=== PATIENT | female | born 1940 | race Asian ===

== ENCOUNTER 2018-10-19 16:50 | Inpatient (IN) | payer MEDICARE, OTHER ==
[~2018-10-19] VITALS: Ht 149.9 cm; Wt 44.0 kg
[~2018-10-19 16:50] MED LIST: 0.9% SODIUM CHLORIDE 10 ML SYRINGE IVP SCH; AMLO-511 PO; ASPI81 PO; ATOR40TA28 PO; CALC25 PO; CHOL50004 PO; CLOP75TA3 PO; DSS100 PO; LOSA50TA64 PO; METO-558 PO; METO25 PO; PANT40TA25 PO; SITA50 PO
[2018-10-19 17:00] VITALS: BP 149/85
[2018-10-19] MEDS ORDERED: INSULIN LISPRO 100 UNITS/ML SQ PRN (19:00)
[2018-10-19] MEDS ORDERED: DEXTROSE 50%-WATER 25 GM/50 ML SYRINGE IVP PRN (19:00)
[2018-10-19 20:29] LABS: GLUCOMETER DEV NAME(LOC) 2WR.2; GLUCOSE,POINT OF CARE 99 MG/DL (70-110)
[2018-10-19] MEDS ORDERED: BISACODYL 10 MG RECTAL RECTAL SUPPOSITORY PR PRN (21:00)
[2018-10-19 21:30] VITALS: BP 154/82
[2018-10-19] MEDS: LOSARTAN POTASSIUM 25 MG TABLET PO SCH (21:32)
[2018-10-19] MEDS: ATORVASTATIN CALCIUM 40 MG TABLET PO SCH (21:32)
[2018-10-19] MEDS: DOCUSATE SODIUM 100 MG CAPSULE PO SCH (21:33)
[2018-10-19] MEDS: METOPROLOL TARTRATE 25 MG TABLET PO SCH (21:33)
[2018-10-19 22:24] LABS: GLUCOMETER DEV NAME(LOC) 2WR.1; GLUCOSE,POINT OF CARE 104 MG/DL (70-110)
[2018-10-19 23:00] VITALS: BP 151/83
[2018-10-20 06:14] LABS: GLUCOMETER DEV NAME(LOC) 2WR.1; GLUCOSE,POINT OF CARE 90 MG/DL (70-110)
[2018-10-20 06:38] LABS: BASOPHILS % (AUTO) 1.1 % (0.0-2.0); EOSINOPHILS % (AUTO) 6.1 % (1.0-6.0); HEMATOCRIT 36.2 % (36-46); HEMOGLOBIN 11.9 g/dL (12.0-16.0); LYMPHOCYTES % (AUTO) 25.5 % (22.0-44.0); MEAN CORPUSCULAR HGB CONC 32.9 G/dL (31.0-37.0); MEAN CORPUSCULAR VOLUME 91 fL (80-100); MONOCYTES # (AUTO) 0.7 K/uL (0.1-1.0); MONOCYTES % (AUTO) 8.5 % (2.0-9.0); NEUTROPHILS # (AUTO) 4.6 K/uL (1.8-7.7); NEUTROPHILS % (AUTO) 58.8 % (40.0-70.0); PLATELET COUNT (AUTO) 235 K/uL (150-450); RED BLOOD CELL COUNT(AUTO) 3.98 MIL/uL (4.00-5.20); RED CELL DISTRIBUTION WIDTH 13.3 % (11.5-14.5)
[2018-10-20 07:08] LABS: ALBUMIN 2.7 g/dL (3.4-5.0); BILIRUBIN,TOTAL 0.4 mg/dL (0.1-1.0); CALCIUM, TOTAL 9.3 mg/dL (8.8-10.5); CREATININE 2.04 mg/dL (0.60-1.30); POTASSIUM 3.9 mmol/L (3.5-5.1); TOTAL PROTEIN, SERUM 6.6 g/dL (6.4-8.2)
[2018-10-20] MEDS: DOCUSATE SODIUM 100 MG CAPSULE PO SCH (08:42)
[2018-10-20] MEDS: PANTOPRAZOLE SODIUM 40 MG DR TABLET PO SCH (08:43)
[2018-10-20] MEDS: ASPIRIN 81 MG EC TABLET PO SCH (08:43)
[2018-10-20] MEDS: LOSARTAN POTASSIUM 25 MG TABLET PO SCH ×2 (08:44→21:58)
[2018-10-20] MEDS: CLOPIDOGREL BISULFATE 75 MG TABLET PO SCH (08:44)
[2018-10-20] MEDS: METOPROLOL TARTRATE 25 MG TABLET PO SCH ×2 (08:44→21:58)
[2018-10-20 08:58] VITALS: BP 157/94
[2018-10-20 14:19] LABS: GLUCOMETER DEV NAME(LOC) 2WR.1; GLUCOSE,POINT OF CARE 100 MG/DL (70-110)
[2018-10-20 15:00] VITALS: BP 154/79
[2018-10-20] MEDS ORDERED: POLYETHYLENE GLYCOL 3350 17 GM PACKET PO PRN (15:30)
[2018-10-20 17:35] LABS: GLUCOMETER DEV NAME(LOC) 2WR.2; GLUCOSE,POINT OF CARE 109 MG/DL (70-110)
[2018-10-20 21:31] VITALS: BP 159/92
[2018-10-20 21:55] VITALS: BP 159/92
[2018-10-20] MEDS: DOCUSATE SODIUM 250 MG CAPSULE PO SCH (21:58)
[2018-10-20] MEDS: ATORVASTATIN CALCIUM 40 MG TABLET PO SCH (21:58)
[2018-10-20 23:33] VITALS: BP 154/79
[2018-10-21 06:45] LABS: GLUCOMETER DEV NAME(LOC) 2WR.2; GLUCOSE,POINT OF CARE 92 MG/DL (70-110)
[2018-10-21] MEDS: DOCUSATE SODIUM 250 MG CAPSULE PO SCH ×2 (08:03→19:46)
[2018-10-21] MEDS: LOSARTAN POTASSIUM 25 MG TABLET PO SCH ×2 (08:03→19:45)
[2018-10-21] MEDS: PANTOPRAZOLE SODIUM 40 MG DR TABLET PO SCH (08:03)
[2018-10-21] MEDS: CLOPIDOGREL BISULFATE 75 MG TABLET PO SCH (08:03)
[2018-10-21] MEDS: ASPIRIN 81 MG EC TABLET PO SCH (08:03)
[2018-10-21] MEDS: METOPROLOL TARTRATE 25 MG TABLET PO SCH ×2 (08:03→19:45)
[2018-10-21 08:53] VITALS: BP 142/79
[2018-10-21 15:34] VITALS: BP 159/84
[2018-10-21 17:39] LABS: GLUCOMETER DEV NAME(LOC) 2WR.2; GLUCOSE,POINT OF CARE 101 MG/DL (70-110)
[2018-10-21 19:43] VITALS: BP 148/74
[2018-10-21] MEDS: ATORVASTATIN CALCIUM 40 MG TABLET PO SCH (19:45)
[2018-10-22 05:06] VITALS: BP 156/79
[2018-10-22 07:24] LABS: GLUCOMETER DEV NAME(LOC) 2WR.2; GLUCOSE,POINT OF CARE 102 MG/DL (70-110)
[2018-10-22 07:27] VITALS: BP 148/79
[2018-10-22] MEDS: CLOPIDOGREL BISULFATE 75 MG TABLET PO SCH (08:49)
[2018-10-22] MEDS: METOPROLOL TARTRATE 25 MG TABLET PO SCH ×2 (08:50→19:30)
[2018-10-22] MEDS: DOCUSATE SODIUM 250 MG CAPSULE PO SCH ×2 (08:50→19:30)
[2018-10-22] MEDS: LOSARTAN POTASSIUM 25 MG TABLET PO SCH ×2 (08:50→19:30)
[2018-10-22] MEDS: PANTOPRAZOLE SODIUM 40 MG DR TABLET PO SCH (08:50)
[2018-10-22] MEDS: ASPIRIN 81 MG EC TABLET PO SCH (08:50)
[2018-10-22 09:30] VITALS: BP 136/73
[2018-10-22 16:00] VITALS: BP 152/77
[2018-10-22 18:47] LABS: GLUCOMETER DEV NAME(LOC) 2WR.2; GLUCOSE,POINT OF CARE 164 MG/DL (70-110)
[2018-10-22 19:28] VITALS: BP 136/78
[2018-10-22] MEDS: ATORVASTATIN CALCIUM 40 MG TABLET PO SCH (19:30)
[2018-10-23 02:16] VITALS: BP 145/76
[2018-10-23 06:40] LABS: GLUCOMETER DEV NAME(LOC) 2WR.1; GLUCOSE,POINT OF CARE 101 MG/DL (70-110)
[2018-10-23 07:00] VITALS: BP 158/57
[2018-10-23 08:00] VITALS: BP 164/76
[2018-10-23] MEDS: DOCUSATE SODIUM 250 MG CAPSULE PO SCH ×2 (08:39→20:02)
[2018-10-23] MEDS: PANTOPRAZOLE SODIUM 40 MG DR TABLET PO SCH (08:40)
[2018-10-23] MEDS: ASPIRIN 81 MG EC TABLET PO SCH (08:40)
[2018-10-23] MEDS: CLOPIDOGREL BISULFATE 75 MG TABLET PO SCH (08:40)
[2018-10-23] MEDS: METOPROLOL TARTRATE 25 MG TABLET PO SCH ×2 (08:40→20:01)
[2018-10-23] MEDS: LOSARTAN POTASSIUM 25 MG TABLET PO SCH (08:40)
[2018-10-23 15:51] VITALS: BP 149/78
[2018-10-23 18:09] LABS: GLUCOMETER DEV NAME(LOC) 2WR.1; GLUCOSE,POINT OF CARE 95 MG/DL (70-110)
[2018-10-23] MEDS: ATORVASTATIN CALCIUM 40 MG TABLET PO SCH (20:01)
[2018-10-24] MEDS ORDERED: AMLO-511 PO (01:34)
[2018-10-24] MEDS ORDERED: CALC25 PO (01:34)
[2018-10-24] MEDS ORDERED: SITA50 PO (01:34)
[2018-10-24 05:00] VITALS: BP 145/81
[2018-10-24 05:45] LABS: GLUCOMETER DEV NAME(LOC) 2WR.1; GLUCOSE,POINT OF CARE 92 MG/DL (70-110)
[2018-10-24 07:00] VITALS: BP 165/92
[2018-10-24] MEDS: LOSARTAN POTASSIUM 50 MG TABLET PO SCH (07:45)
[2018-10-24] MEDS: PANTOPRAZOLE SODIUM 40 MG DR TABLET PO SCH (07:45)
[2018-10-24] MEDS: METOPROLOL TARTRATE 25 MG TABLET PO SCH ×2 (07:45→20:41)
[2018-10-24] MEDS: CLOPIDOGREL BISULFATE 75 MG TABLET PO SCH (07:45)
[2018-10-24] MEDS: DOCUSATE SODIUM 250 MG CAPSULE PO SCH ×2 (07:45→20:41)
[2018-10-24] MEDS: ASPIRIN 81 MG EC TABLET PO SCH (07:45)
[2018-10-24 15:00] VITALS: BP 144/73
[2018-10-24 17:53] LABS: GLUCOMETER DEV NAME(LOC) 2WR.1; GLUCOSE,POINT OF CARE 93 MG/DL (70-110)
[2018-10-24 20:38] VITALS: BP 138/81
[2018-10-24] MEDS: ATORVASTATIN CALCIUM 40 MG TABLET PO SCH (20:41)
[2018-10-25 04:15] VITALS: BP 145/82
[2018-10-25 06:25] LABS: GLUCOMETER DEV NAME(LOC) 2WR.2; GLUCOSE,POINT OF CARE 90 MG/DL (70-110)
[2018-10-25 07:46] VITALS: BP 158/73
[2018-10-25] MEDS: ASPIRIN 81 MG EC TABLET PO SCH (08:04)
[2018-10-25] MEDS: CLOPIDOGREL BISULFATE 75 MG TABLET PO SCH (08:04)
[2018-10-25] MEDS: DOCUSATE SODIUM 250 MG CAPSULE PO SCH ×2 (08:05→20:53)
[2018-10-25] MEDS: METOPROLOL TARTRATE 25 MG TABLET PO SCH ×2 (08:05→20:53)
[2018-10-25] MEDS: LOSARTAN POTASSIUM 50 MG TABLET PO SCH (08:05)
[2018-10-25] MEDS: PANTOPRAZOLE SODIUM 40 MG DR TABLET PO SCH (08:06)
[2018-10-25 16:30] VITALS: BP 153/89
[2018-10-25 20:50] VITALS: BP 155/85
[2018-10-25] MEDS: ATORVASTATIN CALCIUM 40 MG TABLET PO SCH (20:53)
[2018-10-26 03:00] VITALS: BP 149/82
[2018-10-26 05:45] LABS: GLUCOMETER DEV NAME(LOC) 2WR.2; GLUCOSE,POINT OF CARE 97 MG/DL (70-110)
[2018-10-26 07:30] VITALS: BP 149/85
[2018-10-26] MEDS: PANTOPRAZOLE SODIUM 40 MG DR TABLET PO SCH (08:14)
[2018-10-26] MEDS: CLOPIDOGREL BISULFATE 75 MG TABLET PO SCH (08:14)
[2018-10-26] MEDS: LOSARTAN POTASSIUM 50 MG TABLET PO SCH (08:14)
[2018-10-26] MEDS: METOPROLOL TARTRATE 25 MG TABLET PO SCH ×2 (08:14→20:47)
[2018-10-26] MEDS: ASPIRIN 81 MG EC TABLET PO SCH (08:14)
[2018-10-26] MEDS: DOCUSATE SODIUM 250 MG CAPSULE PO SCH ×2 (08:15→20:47)
[2018-10-26 16:15] VITALS: BP 155/86
[2018-10-26 20:45] VITALS: BP 149/79
[2018-10-26] MEDS: ATORVASTATIN CALCIUM 40 MG TABLET PO SCH (20:47)
[2018-10-26] MEDS: MELATONIN 3 MG TABLET PO PRN (20:47)
[2018-10-27 04:00] VITALS: BP 145/74
[2018-10-27 06:24] LABS: GLUCOMETER DEV NAME(LOC) 2WR.2; GLUCOSE,POINT OF CARE 109 MG/DL (70-110)
[2018-10-27 07:47] VITALS: BP 145/59
[2018-10-27] MEDS: LOSARTAN POTASSIUM 50 MG TABLET PO SCH (08:08)
[2018-10-27] MEDS: PANTOPRAZOLE SODIUM 40 MG DR TABLET PO SCH (08:08)
[2018-10-27] MEDS: CLOPIDOGREL BISULFATE 75 MG TABLET PO SCH (08:08)
[2018-10-27] MEDS: METOPROLOL TARTRATE 25 MG TABLET PO SCH ×2 (08:09→21:00)
[2018-10-27] MEDS: ASPIRIN 81 MG EC TABLET PO SCH (08:10)
[2018-10-27] MEDS: DOCUSATE SODIUM 250 MG CAPSULE PO SCH ×2 (08:10→21:18)
[2018-10-27 15:36] VITALS: BP 153/80
[2018-10-27 20:00] VITALS: BP 149/77
[2018-10-27] MEDS: ATORVASTATIN CALCIUM 40 MG TABLET PO SCH (21:18)
[2018-10-27] MEDS: MELATONIN 3 MG TABLET PO PRN (21:19)
[2018-10-28 01:38] VITALS: BP 143/74
[2018-10-28] MEDS: ACETAMINOPHEN 325 MG TABLET PO PRN (01:38)
[2018-10-28 06:34] LABS: GLUCOMETER DEV NAME(LOC) 2WR.2; GLUCOSE,POINT OF CARE 103 MG/DL (70-110)
[2018-10-28 07:45] VITALS: BP 156/75
[2018-10-28] MEDS: PANTOPRAZOLE SODIUM 40 MG DR TABLET PO SCH (08:58)
[2018-10-28] MEDS: ASPIRIN 81 MG EC TABLET PO SCH (08:58)
[2018-10-28] MEDS: CLOPIDOGREL BISULFATE 75 MG TABLET PO SCH (08:58)
[2018-10-28] MEDS: DOCUSATE SODIUM 250 MG CAPSULE PO SCH ×2 (08:58→20:07)
[2018-10-28] MEDS: LOSARTAN POTASSIUM 50 MG TABLET PO SCH ×2 (08:59→10:58)
[2018-10-28] MEDS: METOPROLOL TARTRATE 25 MG TABLET PO SCH ×3 (08:59→20:07)
[2018-10-28 10:55] VITALS: BP 137/63
[2018-10-28 15:23] VITALS: BP 149/80
[2018-10-28] MEDS: ATORVASTATIN CALCIUM 40 MG TABLET PO SCH (20:08)
[2018-10-28] MEDS: TEMAZEPAM 7.5 MG CAPSULE PO PRN (20:08)
[2018-10-29] VITALS (7 sets, daily range): BP systolic 143–170; BP diastolic 71–85
[2018-10-29 06:19] LABS: GLUCOMETER DEV NAME(LOC) 2WR.1; GLUCOSE,POINT OF CARE 96 MG/DL (70-110)
[2018-10-29] MEDS: DOCUSATE SODIUM 250 MG CAPSULE PO SCH ×2 (08:36→19:46)
[2018-10-29] MEDS: ASPIRIN 81 MG EC TABLET PO SCH (08:37)
[2018-10-29] MEDS: CLOPIDOGREL BISULFATE 75 MG TABLET PO SCH (08:37)
[2018-10-29] MEDS: PANTOPRAZOLE SODIUM 40 MG DR TABLET PO SCH (08:37)
[2018-10-29] MEDS: METOPROLOL TARTRATE 25 MG TABLET PO SCH ×2 (08:37→19:46)
[2018-10-29] MEDS: LOSARTAN POTASSIUM 50 MG TABLET PO SCH (08:37)
[2018-10-29] MEDS: ACETAMINOPHEN 325 MG TABLET PO PRN (19:46)
[2018-10-29] MEDS: ATORVASTATIN CALCIUM 40 MG TABLET PO SCH (19:46)
[2018-10-29] MEDS: TEMAZEPAM 7.5 MG CAPSULE PO PRN (19:47)
[2018-10-30 03:45] VITALS: BP 159/71
[2018-10-30 06:00] VITALS: BP 150/75
[2018-10-30 06:10] LABS: GLUCOMETER DEV NAME(LOC) 2WR.2; GLUCOSE,POINT OF CARE 95 MG/DL (70-110)
[2018-10-30 08:00] VITALS: BP 155/89
[2018-10-30] MEDS: METOPROLOL TARTRATE 25 MG TABLET PO SCH ×2 (08:22→20:30)
[2018-10-30] MEDS: PANTOPRAZOLE SODIUM 40 MG DR TABLET PO SCH (08:22)
[2018-10-30] MEDS: LOSARTAN POTASSIUM 50 MG TABLET PO SCH (08:22)
[2018-10-30] MEDS: CLOPIDOGREL BISULFATE 75 MG TABLET PO SCH (08:22)
[2018-10-30] MEDS: DOCUSATE SODIUM 250 MG CAPSULE PO SCH ×2 (08:22→20:30)
[2018-10-30] MEDS: ASPIRIN 81 MG EC TABLET PO SCH (08:22)
[2018-10-30 11:50] VITALS: BP 151/90
[2018-10-30] MEDS: AmLODIPine BESYLATE 5 MG TABLET PO SCH (11:52)
[2018-10-30 15:57] VITALS: BP 155/79
[2018-10-30 20:28] VITALS: BP 149/73
[2018-10-30] MEDS: ATORVASTATIN CALCIUM 40 MG TABLET PO SCH (20:30)
[2018-10-30] MEDS: TEMAZEPAM 7.5 MG CAPSULE PO PRN (20:35)
[2018-10-31 03:00] VITALS: BP 150/78
[2018-10-31 05:55] LABS: GLUCOMETER DEV NAME(LOC) 2WR.2; GLUCOSE,POINT OF CARE 93 MG/DL (70-110)
[2018-10-31 07:10] LABS: BASOPHILS % (AUTO) 0.8 % (0.0-2.0); EOSINOPHILS % (AUTO) 6.3 % (1.0-6.0); HEMATOCRIT 35.2 % (36-46); HEMOGLOBIN 11.8 g/dL (12.0-16.0); LYMPHOCYTES # (AUTO) 2.6 K/uL (1.0-4.8); LYMPHOCYTES % (AUTO) 34.6 % (22.0-44.0); MEAN CORPUSCULAR HGB CONC 33.4 G/dL (31.0-37.0); MEAN CORPUSCULAR VOLUME 90 fL (80-100); MONOCYTES # (AUTO) 0.6 K/uL (0.1-1.0); NEUTROPHILS # (AUTO) 3.7 K/uL (1.8-7.7); NEUTROPHILS % (AUTO) 50.3 % (40.0-70.0); PLATELET COUNT (AUTO) 229 K/uL (150-450); RED BLOOD CELL COUNT(AUTO) 3.92 MIL/uL (4.00-5.20); RED CELL DISTRIBUTION WIDTH 13.3 % (11.5-14.5)
[2018-10-31 07:12] VITALS: BP 156/83
[2018-10-31 07:29] LABS: CREATININE 1.88 mg/dL (0.60-1.30); MAGNESIUM 2.1 mg/dL (1.80-2.40); PHOSPHORUS 3.3 mg/dL (2.5-4.9); POTASSIUM 4.2 mmol/L (3.5-5.1)
[2018-10-31] MEDS: ASPIRIN 81 MG EC TABLET PO SCH (07:51)
[2018-10-31] MEDS: DOCUSATE SODIUM 250 MG CAPSULE PO SCH ×2 (07:51→20:42)
[2018-10-31] MEDS: PANTOPRAZOLE SODIUM 40 MG DR TABLET PO SCH (07:51)
[2018-10-31] MEDS: AmLODIPine BESYLATE 5 MG TABLET PO SCH (07:51)
[2018-10-31] MEDS: CLOPIDOGREL BISULFATE 75 MG TABLET PO SCH (07:51)
[2018-10-31] MEDS: LOSARTAN POTASSIUM 50 MG TABLET PO SCH (07:51)
[2018-10-31 10:00] VITALS: BP 146/89
[2018-10-31] MEDS: METOPROLOL TARTRATE 25 MG TABLET PO SCH ×2 (10:07→20:42)
[2018-10-31 16:02] VITALS: BP 153/73
[2018-10-31 20:20] VITALS: BP 146/89
[2018-10-31] MEDS: ATORVASTATIN CALCIUM 40 MG TABLET PO SCH (20:42)
[2018-11-01 00:13] VITALS: BP 146/80
[2018-11-01 06:24] LABS: GLUCOMETER DEV NAME(LOC) 2WR.2; GLUCOSE,POINT OF CARE 114 MG/DL (70-110)
[2018-11-01 07:00] VITALS: BP 171/87
[2018-11-01] MEDS: PANTOPRAZOLE SODIUM 40 MG DR TABLET PO SCH (08:12)
[2018-11-01] MEDS: CLOPIDOGREL BISULFATE 75 MG TABLET PO SCH (08:12)
[2018-11-01] MEDS: DOCUSATE SODIUM 250 MG CAPSULE PO SCH ×2 (08:12→20:20)
[2018-11-01] MEDS: ASPIRIN 81 MG EC TABLET PO SCH (08:12)
[2018-11-01] MEDS: METOPROLOL TARTRATE 25 MG TABLET PO SCH ×2 (08:13→20:20)
[2018-11-01] MEDS: LOSARTAN POTASSIUM 50 MG TABLET PO SCH (08:13)
[2018-11-01] MEDS: AmLODIPine BESYLATE 5 MG TABLET PO SCH (08:13)
[2018-11-01 10:00] VITALS: BP 151/83
[2018-11-01 15:43] VITALS: BP 133/72
[2018-11-01 20:17] VITALS: BP 130/73
[2018-11-01] MEDS: ATORVASTATIN CALCIUM 40 MG TABLET PO SCH (20:20)
[2018-11-02 02:20] VITALS: BP 134/68
[2018-11-02 06:25] LABS: GLUCOMETER DEV NAME(LOC) 2WR.1; GLUCOSE,POINT OF CARE 103 MG/DL (70-110)
[2018-11-02 07:30] VITALS: BP 146/77
[2018-11-02] MEDS: ASPIRIN 81 MG EC TABLET PO SCH (07:51)
[2018-11-02] MEDS: CLOPIDOGREL BISULFATE 75 MG TABLET PO SCH (07:52)
[2018-11-02] MEDS: LOSARTAN POTASSIUM 50 MG TABLET PO SCH (07:52)
[2018-11-02] MEDS: METOPROLOL TARTRATE 25 MG TABLET PO SCH ×2 (07:52→20:22)
[2018-11-02] MEDS: AmLODIPine BESYLATE 5 MG TABLET PO SCH (07:52)
[2018-11-02] MEDS: PANTOPRAZOLE SODIUM 40 MG DR TABLET PO SCH (07:52)
[2018-11-02] MEDS: DOCUSATE SODIUM 250 MG CAPSULE PO SCH ×2 (07:52→20:22)
[2018-11-02 16:02] VITALS: BP 151/77
[2018-11-02 20:05] VITALS: BP 141/72
[2018-11-02] MEDS: ATORVASTATIN CALCIUM 40 MG TABLET PO SCH (20:22)
[2018-11-03 03:00] VITALS: BP 134/75
[2018-11-03 06:39] LABS: GLUCOMETER DEV NAME(LOC) 2WR.1; GLUCOSE,POINT OF CARE 97 MG/DL (70-110)
[2018-11-03 07:30] VITALS: BP 151/86
[2018-11-03] MEDS: DOCUSATE SODIUM 250 MG CAPSULE PO SCH ×2 (08:32→20:32)
[2018-11-03] MEDS: LOSARTAN POTASSIUM 50 MG TABLET PO SCH (08:32)
[2018-11-03] MEDS: CLOPIDOGREL BISULFATE 75 MG TABLET PO SCH (08:32)
[2018-11-03] MEDS: PANTOPRAZOLE SODIUM 40 MG DR TABLET PO SCH (08:32)
[2018-11-03] MEDS: METOPROLOL TARTRATE 25 MG TABLET PO SCH ×2 (08:32→20:32)
[2018-11-03] MEDS: ASPIRIN 81 MG EC TABLET PO SCH (08:33)
[2018-11-03] MEDS: AmLODIPine BESYLATE 5 MG TABLET PO SCH (08:33)
[2018-11-03 16:09] VITALS: BP 157/76
[2018-11-03] MEDS: ATORVASTATIN CALCIUM 40 MG TABLET PO SCH (20:32)
[2018-11-04 03:08] VITALS: BP 143/77
[2018-11-04 06:24] LABS: GLUCOMETER DEV NAME(LOC) 2WR.2; GLUCOSE,POINT OF CARE 116 MG/DL (70-110)
[2018-11-04 07:30] VITALS: BP 155/83
[2018-11-04] MEDS: CLOPIDOGREL BISULFATE 75 MG TABLET PO SCH (07:44)
[2018-11-04] MEDS: AmLODIPine BESYLATE 5 MG TABLET PO SCH (07:44)
[2018-11-04] MEDS: DOCUSATE SODIUM 250 MG CAPSULE PO SCH ×2 (07:45→20:11)
[2018-11-04] MEDS: METOPROLOL TARTRATE 25 MG TABLET PO SCH ×2 (07:45→20:11)
[2018-11-04] MEDS: MULTIVITAMINS WITH MINERALS, THERAPEUTIC TABLET PO SCH (07:45)
[2018-11-04] MEDS: PANTOPRAZOLE SODIUM 40 MG DR TABLET PO SCH (07:45)
[2018-11-04] MEDS: ASPIRIN 81 MG EC TABLET PO SCH (07:46)
[2018-11-04] MEDS: LOSARTAN POTASSIUM 50 MG TABLET PO SCH (07:46)
[2018-11-04 15:20] VITALS: BP 148/65
[2018-11-04 20:09] VITALS: BP 158/86
[2018-11-04] MEDS: ATORVASTATIN CALCIUM 40 MG TABLET PO SCH (20:11)
[2018-11-04] MEDS: DEXTRAN 70 0.1%/HYPROMELL 0.3% 0.9 ML OPHTHALMIC SOLUTION [PF] OU SCH (20:11)
[2018-11-04 21:31] VITALS: BP 143/71
[2018-11-05 00:35] VITALS: BP 146/67
[2018-11-05 06:20] LABS: GLUCOMETER DEV NAME(LOC) 2WR.1; GLUCOSE,POINT OF CARE 109 MG/DL (70-110)
[2018-11-05 07:47] VITALS: BP 144/97
[2018-11-05] MEDS: METOPROLOL TARTRATE 25 MG TABLET PO SCH ×2 (08:24→20:11)
[2018-11-05] MEDS: DEXTRAN 70 0.1%/HYPROMELL 0.3% 0.9 ML OPHTHALMIC SOLUTION [PF] OU SCH ×2 (08:24→20:11)
[2018-11-05] MEDS: PANTOPRAZOLE SODIUM 40 MG DR TABLET PO SCH (08:25)
[2018-11-05] MEDS: MULTIVITAMINS WITH MINERALS, THERAPEUTIC TABLET PO SCH (08:25)
[2018-11-05] MEDS: DOCUSATE SODIUM 250 MG CAPSULE PO SCH ×2 (08:25→20:11)
[2018-11-05] MEDS: AmLODIPine BESYLATE 5 MG TABLET PO SCH (08:25)
[2018-11-05] MEDS: LOSARTAN POTASSIUM 50 MG TABLET PO SCH (08:25)
[2018-11-05] MEDS: CLOPIDOGREL BISULFATE 75 MG TABLET PO SCH (08:25)
[2018-11-05] MEDS: ASPIRIN 81 MG EC TABLET PO SCH (08:25)
[2018-11-05 15:50] VITALS: BP 140/70
[2018-11-05 20:09] VITALS: BP 130/71
[2018-11-05] MEDS: ATORVASTATIN CALCIUM 40 MG TABLET PO SCH (20:11)
[2018-11-05 23:34] VITALS: BP 140/65
[2018-11-06 06:30] LABS: GLUCOMETER DEV NAME(LOC) 2WR.1; GLUCOSE,POINT OF CARE 122 MG/DL (70-110)
[2018-11-06 07:01] VITALS: BP 151/75
[2018-11-06] MEDS: DOCUSATE SODIUM 250 MG CAPSULE PO SCH ×2 (07:40→20:32)
[2018-11-06] MEDS: MULTIVITAMINS WITH MINERALS, THERAPEUTIC TABLET PO SCH (07:40)
[2018-11-06] MEDS: ASPIRIN 81 MG EC TABLET PO SCH (07:40)
[2018-11-06] MEDS: CLOPIDOGREL BISULFATE 75 MG TABLET PO SCH (07:40)
[2018-11-06] MEDS: LOSARTAN POTASSIUM 50 MG TABLET PO SCH (07:40)
[2018-11-06] MEDS: METOPROLOL TARTRATE 25 MG TABLET PO SCH ×2 (07:40→20:32)
[2018-11-06] MEDS: DEXTRAN 70 0.1%/HYPROMELL 0.3% 0.9 ML OPHTHALMIC SOLUTION [PF] OU SCH ×2 (07:40→20:31)
[2018-11-06] MEDS: AmLODIPine BESYLATE 5 MG TABLET PO SCH (07:40)
[2018-11-06] MEDS: PANTOPRAZOLE SODIUM 40 MG DR TABLET PO SCH (07:40)
[2018-11-06 15:40] VITALS: BP 150/79
[2018-11-06 20:27] VITALS: BP 159/93
[2018-11-06] MEDS: ATORVASTATIN CALCIUM 40 MG TABLET PO SCH (20:31)
[2018-11-06 22:03] VITALS: BP 145/75
[2018-11-07 03:00] VITALS: BP 136/73
[2018-11-07 05:49] LABS: GLUCOMETER DEV NAME(LOC) 2WR.2; GLUCOSE,POINT OF CARE 101 MG/DL (70-110)
[2018-11-07] MEDS ORDERED: DEXT15DR28 OU (06:08)
[2018-11-07 06:25] LABS: BASOPHILS % (AUTO) 0.9 % (0.0-2.0); EOSINOPHILS % (AUTO) 5.9 % (1.0-6.0); HEMATOCRIT 34.3 % (36-46); HEMOGLOBIN 11.5 g/dL (12.0-16.0); LYMPHOCYTES # (AUTO) 2.2 K/uL (1.0-4.8); LYMPHOCYTES % (AUTO) 28.7 % (22.0-44.0); MEAN CORPUSCULAR HEMOGLOBIN 30.2 pg (26.0-34.0); MEAN CORPUSCULAR HGB CONC 33.6 G/dL (31.0-37.0); MEAN CORPUSCULAR VOLUME 90 fL (80-100); MONOCYTES # (AUTO) 0.7 K/uL (0.1-1.0); MONOCYTES % (AUTO) 8.7 % (2.0-9.0); NEUTROPHILS # (AUTO) 4.2 K/uL (1.8-7.7); NEUTROPHILS % (AUTO) 55.8 % (40.0-70.0); PLATELET COUNT (AUTO) 225 K/uL (150-450); RED BLOOD CELL COUNT(AUTO) 3.82 MIL/uL (4.00-5.20); RED CELL DISTRIBUTION WIDTH 13.3 % (11.5-14.5)
[2018-11-07 06:37] LABS: CALCIUM, TOTAL 8.8 mg/dL (8.8-10.5); CREATININE 1.78 mg/dL (0.60-1.30); POTASSIUM 3.9 mmol/L (3.5-5.1)
[2018-11-07] MEDS: PANTOPRAZOLE SODIUM 40 MG DR TABLET PO SCH (07:57)
[2018-11-07] MEDS: DEXTRAN 70 0.1%/HYPROMELL 0.3% 0.9 ML OPHTHALMIC SOLUTION [PF] OU SCH ×2 (07:57→20:28)
[2018-11-07] MEDS: AmLODIPine BESYLATE 5 MG TABLET PO SCH (07:57)
[2018-11-07] MEDS: LOSARTAN POTASSIUM 50 MG TABLET PO SCH (07:58)
[2018-11-07] MEDS: CLOPIDOGREL BISULFATE 75 MG TABLET PO SCH (07:58)
[2018-11-07] MEDS: DOCUSATE SODIUM 250 MG CAPSULE PO SCH ×2 (07:58→20:28)
[2018-11-07] MEDS: ASPIRIN 81 MG EC TABLET PO SCH (07:58)
[2018-11-07] MEDS: METOPROLOL TARTRATE 25 MG TABLET PO SCH ×2 (07:58→20:29)
[2018-11-07] MEDS: MULTIVITAMINS WITH MINERALS, THERAPEUTIC TABLET PO SCH (07:58)
[2018-11-07 08:31] VITALS: BP 156/84
[2018-11-07 11:00] VITALS: BP 148/89
[2018-11-07 15:54] VITALS: BP 133/65
[2018-11-07] MEDS: ATORVASTATIN CALCIUM 40 MG TABLET PO SCH (20:29)
[2018-11-07 20:30] VITALS: BP 134/75
[2018-11-08 00:15] VITALS: BP 150/77
[2018-11-08 06:15] LABS: GLUCOMETER DEV NAME(LOC) 2WR.1; GLUCOSE,POINT OF CARE 107 MG/DL (70-110)
[2018-11-08 07:50] VITALS: BP 152/86
[2018-11-08] MEDS: DEXTRAN 70 0.1%/HYPROMELL 0.3% 0.9 ML OPHTHALMIC SOLUTION [PF] OU SCH ×2 (08:22→20:04)
[2018-11-08] MEDS: MULTIVITAMINS WITH MINERALS, THERAPEUTIC TABLET PO SCH (08:23)
[2018-11-08] MEDS: LOSARTAN POTASSIUM 50 MG TABLET PO SCH (08:23)
[2018-11-08] MEDS: DOCUSATE SODIUM 250 MG CAPSULE PO SCH ×2 (08:23→20:04)
[2018-11-08] MEDS: CLOPIDOGREL BISULFATE 75 MG TABLET PO SCH (08:23)
[2018-11-08] MEDS: ASPIRIN 81 MG EC TABLET PO SCH (08:23)
[2018-11-08] MEDS: PANTOPRAZOLE SODIUM 40 MG DR TABLET PO SCH (08:23)
[2018-11-08] MEDS: AmLODIPine BESYLATE 5 MG TABLET PO SCH (08:24)
[2018-11-08] MEDS: METOPROLOL TARTRATE 25 MG TABLET PO SCH ×2 (08:24→20:04)
[2018-11-08 17:22] VITALS: BP 155/89
[2018-11-08 20:02] VITALS: BP 136/75
[2018-11-08] MEDS: ATORVASTATIN CALCIUM 40 MG TABLET PO SCH (20:04)
[2018-11-09 00:08] VITALS: BP 145/76
[2018-11-09 06:14] LABS: GLUCOMETER DEV NAME(LOC) 2WR.2; GLUCOSE,POINT OF CARE 104 MG/DL (70-110)
[2018-11-09 07:00] VITALS: BP 149/75
[2018-11-09] MEDS: AmLODIPine BESYLATE 5 MG TABLET PO SCH (07:55)
[2018-11-09] MEDS: MULTIVITAMINS WITH MINERALS, THERAPEUTIC TABLET PO SCH (07:55)
[2018-11-09] MEDS: DEXTRAN 70 0.1%/HYPROMELL 0.3% 0.9 ML OPHTHALMIC SOLUTION [PF] OU SCH ×2 (07:55→20:03)
[2018-11-09] MEDS: ASPIRIN 81 MG EC TABLET PO SCH (07:55)
[2018-11-09] MEDS: LOSARTAN POTASSIUM 50 MG TABLET PO SCH (07:55)
[2018-11-09] MEDS: PANTOPRAZOLE SODIUM 40 MG DR TABLET PO SCH (07:55)
[2018-11-09] MEDS: DOCUSATE SODIUM 250 MG CAPSULE PO SCH ×2 (07:55→20:03)
[2018-11-09] MEDS: CLOPIDOGREL BISULFATE 75 MG TABLET PO SCH (07:56)
[2018-11-09] MEDS: SitaGLIPtin PHOSPHATE 50 MG TABLET PO SCH (07:56)
[2018-11-09] MEDS: METOPROLOL TARTRATE 25 MG TABLET PO SCH ×2 (07:56→20:04)
[2018-11-09 15:04] VITALS: BP 153/73
[2018-11-09 20:02] VITALS: BP 128/77
[2018-11-09] MEDS: ATORVASTATIN CALCIUM 40 MG TABLET PO SCH (20:03)
[2018-11-10 03:00] VITALS: BP 141/72
[2018-11-10] MEDS ORDERED: MULT-248 PO (04:04)
[2018-11-10 06:09] LABS: GLUCOMETER DEV NAME(LOC) 2WR.2; GLUCOSE,POINT OF CARE 120 MG/DL (70-110)
[2018-11-10 07:52] VITALS: BP_SYST 138; BP_DIAS 8; BP_DIAS 80
[2018-11-10] MEDS: MULTIVITAMINS WITH MINERALS, THERAPEUTIC TABLET PO SCH (09:09)
[2018-11-10] MEDS: DOCUSATE SODIUM 250 MG CAPSULE PO SCH (09:09)
[2018-11-10] MEDS: DEXTRAN 70 0.1%/HYPROMELL 0.3% 0.9 ML OPHTHALMIC SOLUTION [PF] OU SCH (09:09)
[2018-11-10] MEDS: METOPROLOL TARTRATE 25 MG TABLET PO SCH (09:09)
[2018-11-10] MEDS: SitaGLIPtin PHOSPHATE 50 MG TABLET PO SCH (09:09)
[2018-11-10] MEDS: CLOPIDOGREL BISULFATE 75 MG TABLET PO SCH (09:10)
[2018-11-10] MEDS: LOSARTAN POTASSIUM 50 MG TABLET PO SCH (09:10)
[2018-11-10] MEDS: ASPIRIN 81 MG EC TABLET PO SCH (09:10)
[2018-11-10] MEDS: PANTOPRAZOLE SODIUM 40 MG DR TABLET PO SCH (09:10)
[2018-11-10] MEDS: AmLODIPine BESYLATE 5 MG TABLET PO SCH (09:10)
== END 2018-11-10 12:00 | disposition home health service (06) | DRG 56 ==
LOC: 2WR 16:50
PROVIDERS: ADMIT Physical Medicine & Rehabilitation; ATTEND Physical Medicine & Rehabilitation
DX: I69.351 Hemiplegia and hemiparesis following cerebral infarction affecting right dominant side (principal); I63.9 Cerebral infarction, unspecified; E11.22 Type 2 diabetes mellitus with diabetic chronic kidney disease; E78.5 Hyperlipidemia, unspecified; G31.84 Mild cognitive impairment of uncertain or unknown etiology; H91.91 Unspecified hearing loss, right ear; I12.9 Hypertensive chronic kidney disease with stage 1 through stage 4 chronic kidney disease, or unspecified chronic kidney disease; I25.10 Atherosclerotic heart disease of native coronary artery without angina pectoris; N18.9 Chronic kidney disease, unspecified; Z79.82 Long term (current) use of aspirin; G47.00 Insomnia, unspecified; K59.00 Constipation, unspecified; L60.0 Ingrowing nail; L60.3 Nail dystrophy; Z79.02 Long term (current) use of antithrombotics/antiplatelets; Z79.84 Long term (current) use of oral hypoglycemic drugs; Z79.899 Other long term (current) drug therapy; Z82.49 Family history of ischemic heart disease and other diseases of the circulatory system; Z91.81 History of falling
CPT/HCPCS: 83036; 83735; 84100; 87081; 92507; 92508; 92523; 93970; 97032; 97110; 97112; 97116; 97150; 97162; 97166; 97530; 97535; 99366

== ENCOUNTER → 2018-12-13 | Outpatient (CLI) | payer MEDICARE, OTHER ==
[~2018-12-13] MED LIST changes: -0.9% SODIUM CHLORIDE 10 ML SYRINGE IVP SCH; -CALC25 PO; -CHOL50004 PO; +DEXT15DR28 OU; -METO-558 PO; +MULT-248 PO
[2018-12-13 10:09] LABS: BASOPHILS % (AUTO) 0.7 % (0.0-2.0); EOSINOPHILS % (AUTO) 3.8 % (1.0-6.0); HEMATOCRIT 39.1 % (36-46); LYMPHOCYTES # (AUTO) 3.4 K/uL (1.0-4.8); LYMPHOCYTES % (AUTO) 38.8 % (22.0-44.0); MEAN CORPUSCULAR HEMOGLOBIN 29.9 pg (26.0-34.0); MEAN CORPUSCULAR HGB CONC 33.3 G/dL (31.0-37.0); MEAN CORPUSCULAR VOLUME 90 fL (80-100); MONOCYTES # (AUTO) 0.6 K/uL (0.1-1.0); MONOCYTES % (AUTO) 6.2 % (2.0-9.0); NEUTROPHILS # (AUTO) 4.5 K/uL (1.8-7.7); NEUTROPHILS % (AUTO) 50.5 % (40.0-70.0); PLATELET COUNT (AUTO) 260 K/uL (150-450); RED BLOOD CELL COUNT(AUTO) 4.34 MIL/uL (4.00-5.20); RED CELL DISTRIBUTION WIDTH 13.3 % (11.5-14.5)
[2018-12-13 10:18] LABS: HEMOGLOBIN A1C 6.5 % (4.5-6.2)
[2018-12-13 10:37] LABS: ALBUMIN 3.2 g/dL (3.4-5.0); BILIRUBIN,TOTAL 0.4 mg/dL (0.1-1.0); CALCIUM, TOTAL 9.4 mg/dL (8.8-10.5); CHOL/HDL RATIO 4.3 (3.9-5.7); CREATININE 2.58 mg/dL (0.60-1.30); POTASSIUM 4.6 mmol/L (3.5-5.1); THYROID STIMULATING HORMONE 3.18 uIU/mL (0.36-3.74); TOTAL PROTEIN, SERUM 7.7 g/dL (6.4-8.2)
[2018-12-13 10:38] LABS: VITAMIN B12 LEVEL 1367 pg/mL (211-911)
[2018-12-13 10:55] LABS: FOLATE SERUM > 24.0 ng/mL (5.4-)
== END | disposition home or self-care (01) ==
LOC: LABPV 08:32
PROVIDERS: ATTEND Psychiatry & Neurology Neurology
DX: Z13.220 Encounter for screening for lipoid disorders (principal); E03.9 Hypothyroidism, unspecified; D51.9 Vitamin B12 deficiency anemia, unspecified; R73.09 Other abnormal glucose
CPT/HCPCS: 82607; 82746; 83036; 84443

== ENCOUNTER → 2019-02-22 | Outpatient (CLI) | payer MEDICARE, OTHER ==
[~2019-02-22] MED LIST changes: -AMLO-511 PO; +AMLO5TAB9 PO
[2019-02-22 14:57] LABS: CHOL/HDL RATIO 3.8 (3.9-5.7)
== END | disposition home or self-care (01) ==
LOC: LABPV 10:43
PROVIDERS: ATTEND Psychiatry & Neurology Neurology
DX: E78.5 Hyperlipidemia, unspecified (principal)

== ENCOUNTER → 2019-04-09 | Outpatient (CLI) | payer MEDICARE, OTHER | END | disposition home or self-care (01) | LOC: RADMN 14:43 | PROVIDERS: ATTEND Physical Medicine & Rehabilitation | DX: S09.90XA Unspecified injury of head, initial encounter (principal); M79.89 Other specified soft tissue disorders; I65.23 Occlusion and stenosis of bilateral carotid arteries; W19.XXXA Unspecified fall, initial encounter; Y93.89 Activity, other specified; Y92.89 Other specified places as the place of occurrence of the external cause; Y99.8 Other external cause status | CPT/HCPCS: 70450 ==

== ENCOUNTER → 2019-05-25 | Outpatient (CLI) | payer MEDICARE, OTHER ==
[2019-05-25 11:14] LABS: CHOL/HDL RATIO 3.8 (3.9-5.7)
== END | disposition home or self-care (01) ==
LOC: LABPV 07:57
PROVIDERS: ATTEND Psychiatry & Neurology Neurology
DX: E78.5 Hyperlipidemia, unspecified (principal)